=== PATIENT | female | born 1950 | race African-American/Black ===

== ENCOUNTER 2024-08-19 05:16 | Inpatient (IN) | payer SELFPAY ==
[~2024-08-19] VITALS: Ht 162.6 cm; Wt 80.5 kg
[2024-08-19] MEDS: METHYLPREDNISOLONE SOD SUCC 125MG/2ML (ACT-O-VIAL) IV STA (05:41)
[2024-08-19 05:47] LABS: BASOPHILS % 1.1 % (0.0-2.0); EOSINOPHILS % 3.5 % (0.0-5.0); HEMATOCRIT. 43.9 % (36.0-48.0); HEMOGLOBIN. 13.9 g/dL (12.0-16.0); LYMPHOCYTES % 49.7 % (20.0-50.0); MEAN CORPUSCULAR HEMOGLOBIN 25.9 pg (28.0-32.0); MEAN CORPUSCULAR HGB CONC 31.7 g/dL (31.0-37.0); MEAN CORPUSCULAR VOLUME 81.8 fL (81.0-99.0); MEAN PLATELET VOLUME 9.2 fl (7.4-10.4); MONOCYTES % 3.8 % (2.0-8.0); NEUTROPHILS % 41.9 % (40.0-76.0); PLATELET 222 x1000/uL (130-400); RED BLOOD CELL COUNT 5.36 mill/uL (4.2-5.4); RED CELL DISTRIBUTION WIDTH 14.8 % (11.6-14.6); WHITE BLOOD COUNT 9.7 x1000/uL (4.5-11.0)
[2024-08-19 05:55] LABS: CHLORIDE 108 mEq/L (98-107); POTASSIUM 3.2 mEq/L (3.5-5.1); SODIUM 141 mEq/L (136-145)
[2024-08-19 05:56] LABS: CALCIUM 8.7 mg/dL (8.7-10.4); CARBON DIOXIDE 28 mEq/L (21-32)
[2024-08-19 06:01] LABS: CREATININE 1.2 mg/dL (0.6-1.0); GLUCOSE 256 mg/dL (70-105); UREA NITROGEN BLOOD 19 mg/dL (9-23)
[2024-08-19 06:02] LABS: TROPONIN I HIGH SENSITIVITY 21 ng/L (3.0-34)
[2024-08-19 06:10] VITALS: RESP 24
[2024-08-19] MEDS: ALBUTEROL (0.083%) 2.5MG/3ML NEB HHN STA (06:12)
[2024-08-19] MEDS: IPRATROPIUM BROMIDE (0.02%) 0.5MG/2.5ML NEB HHN STA (06:12)
[2024-08-19 08:33] VITALS: RESP 21
[2024-08-19] MEDS ORDERED: MAGNESIUM/ALUMINUM HYDROXIDE/SIMETHICONE 30ML UDC PO PRN (11:30)
[2024-08-19] MEDS ORDERED: HYDROCODONE/ACETAMINOPHEN 5/325MG TABLET PO PRN (11:30)
[2024-08-19] MEDS ORDERED: DIPHENHYDRAMINE 50MG/ML VIAL IV PRN (11:30)
[2024-08-19] MEDS ORDERED: PROMETHAZINE/DEXTROMETHORPHAN 6.25-15MG/5ML PO PRN (11:30)
[2024-08-19] MEDS ORDERED: LEVOFLOXACIN 500MG PREMIX 100 ML IV SCH (11:30)
[2024-08-19] MEDS ORDERED: ONDANSETRON HCL 4MG/2ML INJ IV PRN (11:30)
[2024-08-19] MEDS ORDERED: DEXTROSE 50% WATER 50ML SYRINGE IV PRN (11:30)
[2024-08-19] MEDS ORDERED: ACETAMINOPHEN 325MG TABLET PO PRN ×2 (11:30)
[2024-08-19] MEDS: ENOXAPARIN 40MG/0.4ML SYR SUBCUT SCH (11:51)
[2024-08-19] MEDS ORDERED: NALOXONE HCL 0.4MG/ML VIAL IV PRN (12:00)
[2024-08-19 12:22] VITALS: PULSE 92; RESP 16; O2SAT 100
[2024-08-19] MEDS: IPRATROPIUM/ALBUTEROL 0.5-3(2.5)MG/3ML NEB HHN SCH (12:22)
[2024-08-19] MEDS: POTASSIUM CHLORIDE 20MEQ TABLET SR PO SCH (12:34)
[2024-08-19] MEDS: BLOOD SUGAR DIAGNOSTIC STRIP TEST SCH (13:00)
[2024-08-19 13:06] LABS: BG BASE EXCESS -5.5 mmol/L (-2.0-3.0); BG CARBOXYHEMOGLOBIN 0.4 % (0.5-1.5); BG DEOXYHEMOGLOBIN 2.3 % (0.0-5.0); BG FRACTION INSPIRED OXYGEN 32; BG HCO3 ACT 18.8 mmol/L (21.0-28.0); BG OXYGEN SATURATION 97.7 % (94.0-98.0); BG OXYHEMOGLOBIN 97.3 % (94.0-98.0); BG PCO2 33.5 mmHg (32.0-45.0); BG PH 7.368 (7.350-7.450); BG PO2 95.9 mmHg (83.0-108.0); BG SAMPLE SITE RIGHT BRACHIAL; BG VENT MODE NASAL CANNULA
[2024-08-19] MEDS: LEVOFLOXACIN 750MG PREMIX 150 ML IV SCH (13:15)
[2024-08-19] MEDS: INSULIN GLARGINE 100 UNITS/ML SUBCUT SCH (13:15)
[2024-08-19] MEDS: INSULIN LISPRO 100 UNITS/ML SUBCUT SCH (13:20)
[2024-08-19] MEDS: SODIUM CHLORIDE 0.9% 3ML FLUSH IVF SCH (14:06)
[2024-08-19] MEDS: METHYLPREDNISOLONE SOD SUCC 125MG/2ML (ACT-O-VIAL) IV SCH (14:11)
[2024-08-19 17:34] VITALS: PULSE 92; RESP 18; O2SAT 100
[2024-08-19] MEDS ORDERED: ZOLPIDEM TARTRATE 5MG TABLET PO PRN (21:00)
[2024-08-19] MEDS: PANTOPRAZOLE 40MG DR TABLET PO SCH (23:49)
[2024-08-19] MEDS: GUAIFENESIN 600MG ER TABLET PO SCH (23:49)
[2024-08-20] VITALS (8 sets, daily range): BP systolic 151–178; BP diastolic 56–80; PULSE 80–99; RESP 15–24; TEMP 36.6696–37.0852; O2SAT 96–100
[2024-08-20] MEDS: HYDRALAZINE 20MG/ML VIAL IV PRN (14:59)
[2024-08-20] MEDS: METHYLPREDNISOLONE SOD SUCC 40MG/ML (ACT-O-VIAL) IV SCH ×2 (14:59→18:19)
[2024-08-20] MEDS ORDERED: METHYLPREDNISOLONE SOD SUCC 40MG/ML (ACT-O-VIAL) IV SCH (15:30)
[2024-08-21] VITALS (9 sets, daily range): BP systolic 103–173; BP diastolic 61–87; PULSE 86–101; RESP 18–27; TEMP 36.44736–36.78072; O2SAT 98–100
[2024-08-21] MEDS: ACETYLCYSTEINE 200MG/ML 20% VIAL 4ML INH SCH (03:15)
[2024-08-21 09:08] LABS: CHLORIDE 107 mEq/L (98-107); POTASSIUM 4.5 mEq/L (3.5-5.1); SODIUM 140 mEq/L (136-145)
[2024-08-21 09:09] LABS: CALCIUM 9.1 mg/dL (8.7-10.4); CARBON DIOXIDE 25 mEq/L (21-32)
[2024-08-21 09:14] LABS: CREATININE 1.1 mg/dL (0.6-1.0); GLUCOSE 218 mg/dL (70-105); UREA NITROGEN BLOOD 30 mg/dL (9-23)
[2024-08-21 09:16] LABS: PHOSPHORUS 4.3 mg/dL (2.5-4.9)
[2024-08-22] VITALS (11 sets, daily range): BP systolic 115–181; BP diastolic 58–102; PULSE 68–90; RESP 15–22; TEMP 36.61404–36.9474; O2SAT 95–100
[2024-08-22] MEDS: CLONIDINE 0.1MG TABLET PO PRN (01:15)
[2024-08-22] MEDS: PREDNISONE 20MG TABLET PO SCH (09:48)
[2024-08-23] VITALS (11 sets, daily range): BP systolic 143–233; BP diastolic 65–90; PULSE 58–81; RESP 14–19; TEMP 36.05844–36.72516; O2SAT 97–100
[2024-08-23] MEDS: IPRATROPIUM/ALBUTEROL 0.5-3(2.5)MG/3ML NEB HHN PRN (09:04)
[2024-08-23] MEDS ORDERED: HYDRALAZINE 20MG/ML VIAL IV PRN (11:45)
[2024-08-23] MEDS: LOSARTAN 100 MG TABLET PO SCH (15:23)
[2024-08-23] MEDS: NIFEDIPINE XL 60MG TAB PO SCH (15:23)
[2024-08-23] MEDS: LEVOFLOXACIN 250MG TABLET PO SCH (15:24)
[2024-08-23] MEDS: CLONIDINE 0.1MG TABLET PO PRN (20:19)
[2024-08-24] VITALS (7 sets, daily range): BP systolic 132–148; BP diastolic 46–70; PULSE 66–75; RESP 16–19; TEMP 36.114–36.78072; O2SAT 98–99
[2024-08-24] MEDS: FAMOTIDINE 20MG TABLET PO SCH (10:20)
== END 2024-08-24 17:40 | disposition home or self-care (01) | DRG 140 ==
LOC: ER 05:24 → EDBEDREQ 08:49 → EDBEDREQTM 08:49 → EDBEDREQSVC 08-20 01:04 → 3WST 08-20 13:18 → 7EST 08-23 05:05
PROVIDERS: ADMIT Internal Medicine; ATTEND Internal Medicine
PROC: 5A09357 Assistance with Respiratory Ventilation, Less than 24 Consecutive Hours, Continuous Positive Airway Pressure (ICD-10-PCS; principal; 2024-08-19)
DX: J44.0 Chronic obstructive pulmonary disease with (acute) lower respiratory infection (principal); J96.01 Acute respiratory failure with hypoxia; J18.9 Pneumonia, unspecified organism; J44.1 Chronic obstructive pulmonary disease with (acute) exacerbation; E11.9 Type 2 diabetes mellitus without complications; Z20.822 Contact with and (suspected) exposure to COVID-19; E87.6 Hypokalemia; N17.9 Acute kidney failure, unspecified; E66.9 Obesity, unspecified; I10 Essential (primary) hypertension; Z88.0 Allergy status to penicillin; Z90.710 Acquired absence of both cervix and uterus; Z68.30 Body mass index [BMI] 30.0-30.9, adult; Z86.73 Personal history of transient ischemic attack (TIA), and cerebral infarction without residual deficits
CPT/HCPCS: 36415; 36600; 71045; 80048; 82375; 82805; 82962; 83036; 83735; 83880; 84100; 84484; 85025; 85379; 87070; 87426; 87804; 93005; 93306; 94070; 94640; 94660; 94760; 99291; A4663; J0360; J1650; J1815; J1956; J2919; J2920; J7512; J7608